=== PATIENT | male | born 1995 | race Two or more races ===

== ENCOUNTER 2022-08-19 11:12 | Emergency (ER) | payer OTHER ==
[~2022-08-19] VITALS: Ht 180.3 cm; Wt 118.0 kg
[2022-08-19 11:30] VITALS: BP 158/113
[2022-08-19] MEDS ORDERED: ONDANSETRON ODT 4 MG TAB PO ONE (13:00)
[2022-08-19] MEDS ORDERED: IBUP600T28 PO (13:03)
[2022-08-19] MEDS ORDERED: CYCL-839 PO (13:03)
[2022-08-19] MEDS ORDERED: KETOROLAC TROMETH 30 MG/ML 1ML VIAL IM ONE (13:15)
== END 2022-08-19 13:43 | disposition home or self-care (01) ==
LOC: EDBD 11:12 → ER 11:12
DX: S62.397A Other fracture of fifth metacarpal bone, left hand, initial encounter for closed fracture (principal); W26.8XXA Contact with other sharp object(s), not elsewhere classified, initial encounter; Y93.89 Activity, other specified; Y92.89 Other specified places as the place of occurrence of the external cause; Y99.8 Other external cause status
CPT/HCPCS: 29125; 73130; 96372; 99283; J1885; Q0162

== ENCOUNTER 2023-06-30 08:35 | Emergency (ER) | payer OTHER ==
[~2023-06-30] VITALS: Ht 182.9 cm; Wt 124.4 kg
[~2023-06-30 08:35] MED LIST: CYCL-839 PO; IBUP1TAB5 PO
[2023-06-30 09:00] VITALS: BP 138/98; PULSE 93; RESP 18; TEMP 98.5; O2SAT 95
[2023-06-30] MEDS ORDERED: HYDROcodone-ACET 5/325MG TAB PO ONE (09:30)
[2023-06-30] MEDS ORDERED: IBUP1TAB5 PO (09:36)
== END 2023-06-30 09:37 | disposition home or self-care (01) ==
LOC: ER 08:35
DX: S93.402A Sprain of unspecified ligament of left ankle, initial encounter (principal); J45.909 Unspecified asthma, uncomplicated; Z90.49 Acquired absence of other specified parts of digestive tract; X50.1XXA Overexertion from prolonged static or awkward postures, initial encounter; Y93.89 Activity, other specified; Y92.89 Other specified places as the place of occurrence of the external cause; Y99.8 Other external cause status
CPT/HCPCS: 73610